=== PATIENT | female | born 1980 | race African-American/Black ===

== ENCOUNTER 2024-12-31 16:56 | Emergency (ER) | payer OTHER, SELFPAY ==
--- OUTSIDE RECORDS SUMMARY | 2024-12-04 12:30 | XMS_ITS | Encounter Summary ---
Author Organization [place] Address [address] [place] [address] Care Team Providers Care Hook And Eye Attacher Name Role Phone Jose Luis Manzano PA-C Primary Care Provider [phone] Annia Childers MD Unavailable [phone] Rose Wagoner PA-C Unavailable [phone] Reason for Referral * Consultation (Routine) - Pending Review Specialty Diagnoses / Procedures Referred By Briseida bernard Referred To Contact Allergy Diagnoses Seasonal allergies Food allergy Jose Luis Manzano PA-C [address] [place] [address] [address] [place] [address] Phone: tel: fax: Referral ID Status Reason Start Date Expiration Date V isits Requested Visits Authorized [id number] Pending Review 12/04/2024 12/04/2025 1 1 Question Answer Reason for Referral: Allergy - Seasonal Scheduling Instructions: [facility] will call you to coordinate your care as prescribed by the provider. If you don t hear from a inbound call center representative within 2 business days, please call [phone] Comments Please be aware that coverage of these services is subject to the terms and limitations of your health insurance plan. Call member services at your health plan with any benefit or coverage questions. [facility] will call you to coordinate your care as prescribed by the provider. If you don t hear from a inbound call center representative within 2 business days, please call [phone] Reason for Visit * Reason Comments Allergies Itchy eyes, sneezing , headache, symptoms started 2 weeks ago, this occurs every spring, she has tried loratidin Encounter Details Date Type Department Care Team (Late st Contact Info) Description 12/04/2024 12:30 PM CDT Office Visit [facility] [address] [phone] Jose Luis Manzano PA-C [address] [address] Fibromyalgia (Primary Dx); Seasonal allergies; Food allergy Social History Tobacco Use Types Packs/Day Years Used Date Smoking Tobacco: Never Passive Smoke Exposure: Never Smokeless Tobacco: Never Tobacco Cessation:Counseling Given: Not Answered Alcohol Use Standard Drinks/Week Comments No 0 (1 standard drink = 0.6 oz pur e alcohol) PHQ-2 Answer Date Recorded PHQ-2 Score 0 10/02/2024 Adolescent Education Answer Date Record ed Getting School Help Needed Not on file 05/04 Comments No Sex and Gender Information Value Date Recorded Sex Assigned at Not on file Legal Sex Female 10:27 AM CDT Gender Identity Not on file Sexual Orientation Not on file documented as of this encounter Last Filed Vital Signs Vital Sign Reading Time Taken Comments Blood Pressure 122/72 12/04/2024 12:44 PM CDT Pulse 84 12/04/2024 12:44 PM CDT Temperature 36.6 C (97.9 F) 12/04/2024 12:44 PM CDT Respiratory Rate - - Oxygen Saturation 99% 12/04/2024 12:44 PM CDT Inhaled Oxygen Concentration - - Weight - - Height - - Body Mass Index - - documented in this encounter Progress Notes * Jose Luis Manzano PA-C - 12/04/2024 12:30 PM CDT Assessment & Plan Seasonal allergies - patient has tried and failed ~3 oral antihistamines as well as nasal sprays, having increasing oral itching with certain foods, warrants referral to supervisor sewer maintenance - Present to ED with any signs of anaphylaxis - Adult Allergy/Asthma Shopper Marketing Manager Referral - To [facility] Location Food allergy - occurring with honey, fruits, and [place] chocolate, avoid these foods for now - Adult Allergy/Asthma Shopper Marketing Manager Referral - To [facility] Location Fibromyalgia - stable, gabapentin and physical activity are helping with her symptoms, will refill gabapentin unchanged for 1 year - gabapentin (NEURONTIN) 300 MG capsule Dispense: 360 capsule; Refill: 3 Follow-up 1 year OV Malissa Jean is a 44 year old, presenting for the following health issues: Allergies (Itchy eyes, sneezing, headache, symptoms started 2 weeks ago, this occurs every spring, she has tried loratidin) HPI Patient presents with c/o seasonal allergies for 2 weeks. She complains of nasal congestion, itchy eyes, sneezing every spring for ~15 years. She uses Claratin and Flonase daily. She has tired Zyrtecand Jing as well. Nothing helping. She also has experiences with foods that make her tongue itchand gets bumps on the sides, this especially happens with honey and some fruits. She was eating some [place] chocolate a few days ago and she noticed her throat felt tight. No shortness of breath or reason to go to ED. Wants referral to supervisor sewer maintenance. No sick symptoms, fevers, chills, cough, or SOB currently. Fibromyalgia: requests refill gabapentin. Using 3 capsules nightly. More physical activity has beenhelping her. Feels benefit from meds-helps her sleep and muscle aches. Review of Systems Constitutional, neuro, ENT, endocrine, pulmonary, cardiac, gastrointestinal, genitourinary, musculoskeletal, integument and psychiatric systems are negative, except as otherwise noted. Objective BP 122/72 Pulse 84 Temp 97.9 ??F (36.6 ??C) SpO2 99% There is no height or weight on file to calculate BMI. Physical Exam GENERAL: alert and no distress NECK: no adenopathy, no asymmetry, masses, or scars MOUTH: Bumps on sides of tongue RESP: lungs clear to auscultation - no rales, rhonchi or wheezes CV: regular rate and rhythm, normal S1 S2, no S3 or S4, no murmur, click or rub, no peripheral edema ABDOMEN: soft, nontender, no hepatosplenomegaly, no masses and bowel sounds normal MS: no gross musculoskeletal defects noted, no edema NEURO: Normal strength and tone, mentation intact and speech normal PSYCH: mentation appears normal, affect normal/bright No results found for any visits on 12/04/24. Signed Electronically by: Jose Luis Manzano PA-C documented in this encounter Nursing Notes * Elida Tompkins CMA - 12/04/2024 12:30 PM CDT Chief Complaint Patient presents with Allergies Itchy eyes, sneezing, headache, symptoms started 2 weeks ago, this occurs every spring, she has tried loratidin Pre-visit Screening: Immunizations: up to date Colonoscopy: NA Mammogram: is due and to be scheduled by patient for later completion Asthma Action Test/Plan: NA PHQ9: NA GAD7: NA Questioned patient about current smoking habits Pt. has never smoked. Ok to leave detailed message on voice mail for today's visit only Yes, phone # [phone] documented in this encounter Plan of Treatment Upcoming Encounters Date Type Department Care Team (Late st Contact Info) Description 02/04/2025 11:15 AM CDT Office Visit [facility] [address] [place] [phone] Kyra Julieth Dumont, CN [address] [facility] 700 [place] [address] 04/01/2025 9:30 AM CDT Office Visit [facility] [place] [address] [facility] [address] [place] [phone] Jose Luis Manzano PA-C [address] [place] [address] Nghia Wick MD [address] [facility] 200 [place] [address] Scheduled Referrals Name Type Priority Associated Diagnoses Orde r Schedule Adult Allergy/Asthma Shopper Marketing Manager Referral - To [facility] Referral Routine: Next available opening Seasonal allergies Food allergy Expected: 12/04/2024 (Approximate), Expires: 12/04/2025 documented as of this encounter Visit Diagnoses Diagnosis Fibromyalgia- Primary Mylagia and myositis, unspecified Seasonal allergies Allergic rhinitis, cause unspecified Food allergy Other adverse food reactions, not elsewhere classified documented in this encounter Care Teams Hook And Eye Attacher Relationship Specialty Start Date End Date Jose Luis Manzano PA-C [address] [address] PCP - General Family Medicine 05/25/22 Annia Childers MD [address] [place] [address] Assigned PCP 11/01/24 Rose Wagoner PA-C [address] [address] Physician Glass Beveler renewable energy division manager 11/17/24 documented as of this encounter
[2024-12-31 17:03] VITALS: BP 112/76; PULSE 76; RESP 16; TEMP 36.9; O2SAT 98; BMI 32.0
--- NOTE | 2024-12-31 17:15 | CRLHL7_ITS ---
For Patients: As a result of the Century Cures Act, medical imaging exams and procedure reports are released immediately into your electronic medical record. You may view this report before your referring provider. If you have questions, please contact your health care provider. INDICATION: IUD and positive at home test, lower abdominal pain. Beta hCG reportedly negative. COMPARISON: None. TECHNIQUE: Ultrasound pelvis transvaginal for better assessment or to better visualize the endometrium. Real-time sonographic images with color Doppler and spectral analysis of the ovaries were obtained. FINDINGS: Sonographic images demonstrate a normal size and smooth outer contour of the uterus. The uterus is retroflexed in position. The uterus measures 8.7 cm in length by 3.9 cm in AP dimension by 4.9 cm in transverse dimension. The myometrium has uniform echotexture. Nabothian cysts in the cervix. The endometrial lining measures 4 mm in composite thickness. IUD appears appropriately positioned. No intrauterine gestational sac identified. The right ovary measures 2.2 x 1.2 x 1.3 cm and demonstrates normal arterial and venous waveforms. The left ovary was not visualized. No suspicious adnexal mass. No free fluid in the pelvic cul-de-sac. IMPRESSION: 1. No intrauterine gestational sac or suspicious adnexal mass. Correlate with serial beta HCG levels and follow-up imaging as clinically indicated. 2. IUD appears appropriately positioned. 3. Normal sonographic appearance of the right ovary. Nonvisualization of the left ovary. Dictated by Felicita Garcia MD @ 12/31/2024 6:38:34 PM (Electronically Signed)
--- NOTE | 2024-12-31 17:17 | ED.PREGNANCY ---
HPI - General Chief complaint: Urogenital Problems, Female Stated complaint: IUD and positive test Time Seen by Provider: 12/31/24 17:00 History of Present Illness HPI Narrative: This 44-year-old female comes in stating that she had a positive urine test today. She did 1 last week which was negative. She states that she has an IUD in place and reports some occasional lower abdominal pain that comes and goes. She states that she is otherwise in good health. Related Data Home Medications ?Medication ?Instructions ?Recorded ?Confirmed dextroamphetamine-amphetamine ER 30 mg PO DAILY 12/31/24 12/31/24 30 mg 24hr capsule,extend release (Adderall XR) gabapentin 300 mg capsule 300 mg PO DAILY 12/31/24 12/31/24 Previous Rx's ?Medication ?Instructions ?Recorded ketorolac 10 mg tablet 10 mg PO TID 5 days #15 tabs 12/31/24 Allergies Allergy/AdvReac Type Severity Reaction Status Date / Time No Known Drug Allergies Allergy Verified 12/31/24 17:01 Review of Systems Status of ROS: Reports: 10 or more systems reviewed and unremarkable except as noted in History and below Narrative: Constitutional: No fevers, no weight gain or loss. Eyes: No discharge. No vision changes. HENT: No congestion, no sore throat, no ear pain. Cardiovascular: No chest pain, no palpitations. Respiratory: No shortness of breath, no wheezes, no cough. Gastrointestinal: No vomiting, no diarrhea. Occasions of lower abdominal pain. Genitourinary: No dysuria, no hematuria. Musculoskeletal: Normal range of motion. Skin: No rashes, no pruritis. Neurological: No dizziness, weakness, sensory change, speech change. Endo/Heme/Allergies: No bruising or bleeding. No polydipsia. Pysch: no suicidality, no anxiety, no insomnia. All other systems reviewed and are negative. Exam Narrative: Exam Narrative: Constitutional: Well-developed, well-nourished, no acute distress. HEENT: Normocephalic, atraumatic. Neck: Normal range of motion. Nontender. Supple. Heart: Regular. No murmurs. Normal rate. Intact distal pulses. Lungs: Clear to auscultation. No chest discomfort. No wheezes, rhonchi, or rales. Abdomen: Normal bowel sounds. Nontender. No rebound tenderness. Genitalia: Deferred. Back: No midline tenderness. Normal range of motion. Extremities: Normal range of motion. No injury. Skin: Intact. No rash. Warm. No erythema or pallor. Neurologic: No altered sensation. No weakness. Alert and oriented. Psychiatric: No suicidality. No anxiety or depression. No insomnia. Nursing notes and vitals signs are reviewed. Const: Vital Signs, click to edit/add: Vital Signs - 24 hr 12/31/24 17:03 12/31/24 18:59 Temperature 98.5 F Pulse Rate [Pulse Oximeter] 76 64 Respiratory Rate 16 16 [facility] 112/76 121/95 H Pulse Oximetry 98 98 Oxygen Delivery Me thod Room Air Room Air Course Vital Signs Vital signs: Initial Vital Signs Temperature 98.5 F 12/31/24 17:03 Temperature Source Temporal Artery Scan 12/31/24 17:03 Pulse Rate 76 12/31/24 17:03 Respiratory Rate 16 12/31/24 17:03 Blood Pressure 112/76 12/31/24 17:03 Blood Pressure Mean 88 12/31/24 17:03 Blood Pressure Position Sitting 12/31/24 17:03 Pulse Oximetry 98 12/31/24 17:03 Oxygen Delivery Method Room Air 12/31/24 17:03 Vital Signs Temperature 98.5 F 12/31/24 17:03 Pulse Rate 76 12/31/24 17:03 Respiratory Rate 16 12/31/24 17:03 Blood Pressure 112/76 12/31/24 17:03 Pulse Oximetry 98 12/31/24 17:03 Oxygen Delivery Method Room Air 12/31/24 17:03 Temperature 98.5 F 12/31/24 17:03 Pulse Rate 64 12/31/24 18:59 Respiratory Rate 16 12/31/24 18:59 Blood Pressure 121/95 H 12/31/24 18:59 Pulse Oximetry 98 12/31/24 18:59 Oxygen Delivery Method Room Air 12/31/24 18:59 MDM - OB/Uterine Contractions MDM Narrative Medical decision making narrative: This patient comes in with report of a positive home test despite having an IUD in place per she does report some occasions of lower abdominal pain. She arrives here with normal vital signs. Urine test here returns negative. Urinalysis also shows no sign of infection. A transvaginal ultrasound is obtained and shows properly placed IUD without any sign of fluid or other abnormality. The left ovary was not well visualized. I relayed these findings to the patient and encouraged her to follow-up with OBGYN clinic if symptoms are persisting or return if worsening. I did provide a prescription for Toradol. Lab Data Labs: Lab Results 12/31/24 12/31/24 Range/Units 17:25 17:35 Urine Color Yellow (Yellow) Urine Appearance Clear (Clear) Urine pH 6.5 (5.0-8.5) Ur Specific [place] 1.020 (1.000-1.030) Urine Protein Negative (Negative) Urine Glucose (UA) Negative (Negative) Urine Ketones Negative (Negative) Urine Blood Negative (Negative) Urine Nitrite Negative (Negative) Urine Bilirubin Negative (Negative) Urine Urobilinogen 0.2 (0.2-1.0) Ur Leukocyte Esterase Negative (Negative) Urine HCG, Qual Negative (Negative) Imaging Data US - abdomen: Radiologist's impression: 1. No intrauterine gestational sac or suspicious adnexal mass. Correlate with serial beta HCG levels and follow-up imaging as clinically indicated. 2. IUD appears appropriately positioned. 3. Normal sonographic appearance of the right ovary. Nonvisualization of the left ovary. Discharge Plan Discharge Clinical Impression: Abdominal pain Patient Disposition: Home, Self-Care Condition: Stable Additional Instructions: Take medication as needed and directed. Follow-up with OBGYN clinic for further diagnosis and management as needed. Prescriptions: New ketorolac 10 mg tablet 10 mg PO TID 5 Days Qty: 15 0RF No Action gabapentin 300 mg capsule 300 mg PO DAILY dextroamphetamine-amphetamine [Adderall XR] 30 mg capsule,extended release 24hr 30 mg PO DAILY Follow Up/Referrals: Provider,Not a Local [Primary Care Provider, Family Practice] Stand Alone Forms: [employer] Info Instructions
[2024-12-31 17:46] LABS: Ur HCG Qualitative* Negative (Negative)
--- OUTSIDE RECORDS SUMMARY | 2024-12-31 17:58 | XMS_ITS | Encounter Summary ---
Author Organization [place] Address [address] [facility] [address] Care Team Providers Care Tour Leader Name Role Phone Jose Luis Manzano PA-C Primary Care Provider [phone] Annia Childers MD Unavailable [phone] Rose Wagoner PA-C Unavailable [phone] Nghia Wick MD Unavailable Julieth Rae CNM Unavailable [phone] Encounter Details Date Type Department Care Team (Latest Contact Info) Description 12/31/2024 Travel Social History Tobacco Use Types Packs/Day Years Used Date Smoking Tobacco: Never Passive Smoke Exposure: Never Smokeless Tobacco: Never Alcohol Use Standard Drinks/Week Comments No 0 [...] on file documented as of this encounter Plan of Treatment Upcoming Encounters Date Type Department Care Team (Late st Contact Info) Description 02/04/2025 11:15 AM CDT Office Visit [facility] [address] [place] [phone] Julieth Rae CNM [address] [place], [place] [address] 04/01/2025 9:30 AM CDT Office Visit [facility] [place] [address] [facility] [address] [place] [address] Jose Luis Manzano PA-C [address] [place] [address] Nghia Wick MD [address] [facility] 200 [place] [address] documented as of this encounter Visit Diagnoses Not on filedocumented in this encounter Care Teams Tour Leader Relationship Specialty Start Date End Date Jose Luis Manzano PA-C [address] [place] [address] PCP - General Family Medicine 05/25/22 Annia Childers MD [address] [place] [address] Assigned PCP 11/01/24 Rose Wagoner PA-C [address] [facility] 100 [place] [address] Physician Dry End Operator live study manager 11/17/24 Nghia Wick MD [address] [facility] [address] [place] [address] Allergy & Immunology 12/11/24 Julieth Rae CNM [address] [place] [address] Statement Request Clerk live study manager 12/21/24 documented as of this encounter
--- OUTSIDE RECORDS SUMMARY | 2024-12-31 17:59 | XMS_ITS | Encounter Summary ---
Author Organization [place] Address [address] [place] [address] Care Team Providers Care Lap Cutter Truer Operator Name Role Phone Miguelina Christiansen APRN, CNP Primary Care Provid er Encounter Details Date Type Department Care Team (Late st Contact Info) Description 10/16/2013 Correspondence External to [facility] External, [place] [address] [employer] OF [employer]M Social History Tobacco Use Types Packs/Day Years Used Date Smoking Tobacco: Never Smokeless Tobacco: Never Alcohol Use Standard Drinks/Week Comments No 0 (1 standard drink = 0.6 oz pur e alcohol) Comments Yes Sex and Gender Information Value Date Recorded Sex Assigned at Not on file Legal Sex Female 2:58 AM CDT Gender Identity Not on file Sexual Orientation Not on file Occupation Industry Job Start Date Job End Date homemaker Not on file Not on file Not on file documented as of this encounter Progress Notes * External, Provider - 10/16/2013 12:00 AM CST documented in this encounter Plan of Treatment Not on file documented as of this encounter Visit Diagnoses Not on filedocumented in this encounter Care Teams Lap Cutter Truer Operator Relationship Specialty Start Date End Date Miguelina Christiansen APRN, CNP [address] [place] [address] PCP - General Nurse Practitioner 04/24/18 documented as of this encounter
--- OUTSIDE RECORDS SUMMARY | 2024-12-31 17:59 | XMS_ITS | Encounter Summary ---
Author Organization [place] Address [address] [place] [address] Care Team Providers Care Plywood Stock Grader Name Role Phone Kiran Nicholas SCHEDULING ASSISTANT Unavailable [phone] Jose Luis Manzano PA-C Primary Care Provider Dereje David MD Unavailable [phone] Nicholas Gordillo MD Unavailable [phone] Nupur Melo APRN [facility] Unavailable [phone] Annia Childers MD Unavailable Rose Wagoner PA-C Unavailable Nghia Wick MD Unavailable Julieth Rae [facility] Unavailable [phone] Encounter Details Date Type Department Care Team (Late st Contact Info) Description 10/10/2022 MyC Medical Advice [facility] [address] [address] Jose Luis Manzano PA-C [address] [address] Social History Tobacco Use Types Packs/Day Years Used Date Smoking Tobacco: Never Smokeless Tobacco: Never Alcohol Use Standard Drinks/Week Comments No 0 (1 standard drink = 0.6 oz pur e alcohol) PHQ-2 Answer Date Recorded PHQ-2 Score 0 08/31/2022 Comments No Sex and Gender Information Value Date Recorded Sex Assigned at Not on file Legal Sex Female 10:27 AM CDT Gender Identity Not on file Sexual Orientation Not on file COVID-19 Exposure Response Date Recorded In the last 10 days, have yo u been in contact with someone who was confirmed or suspected to have Coronavirus/COVID-19? No / Unsure 09/27/2022 2:35 PM HEAD OPERATOR documented as of this encounter Plan of Treatment Upcoming Encounters Date Type Department Care Team (Late st Contact Info) Description 02/04/2025 11:15 AM CDT Office Visit [facility] [address] [place] [address] [place] [address] Julieth Rae, [facility] [address] [place] [address] 04/01/2025 9:30 AM CDT Office Visit [facility] [place] [address] [facility] [address] [place] [phone] Jose Luis Manzano PA-C [address] [place] [address] Nghia Wick MD [address] [facility] 200 [place], [place] [address] documented as of this encounter Visit Diagnoses Not on filedocumented in this encounter Care Teams Plywood Stock Grader Relationship Specialty Start Date End Date Jose Luis Manzano PA-C [address] [place] [facility] [address] [place] [address] PCP - General Family Medicine 05/25/22 Kiran Nicholas NP [address] [facility] [place] [address] Assigned PCP 11/19/21 06/21/23 [place] [address] [place] [address] Assigned Rheumatology Provider 07/14/22 12/02/23 Nicholas Gordillo MD [address] [place] [address] Assigned PCP 06/22/23 08/02/24 Nupur Melo APRN MILL CRANE OPERATOR [address] [facility] [place] [address] Assigned PCP 08/03/24 10/31/24 Annia Childers MD [address] [place] [address] Assigned PCP 11/01/24 Rose Wagoner, PA-C [address] [place] [address] Physician Kettle Chipper director hris 11/17/24 Nghia Wick MD [address] [place] [address] Allergy & Immunology 12/11/24 Julieth Rae CNM [address] [place], [place] [address] Senior Quantity Surveyor director hris 12/21/24 documented as of this encounter
--- OUTSIDE RECORDS SUMMARY | 2024-12-31 17:59 | XMS_ITS | Encounter Summary ---
Author Organization [facility] Address [address] [place] [address] Care Team Providers Care Pre School Teacher Name Role Phone Miguelina Christiansen APRN, CNP Primary Care Provid er Encounter Details Date Type Department Care Team (Late st Contact Info) Description 10/04/2014 Consent for Procedure/Treatme nt [facility] PATIENT CONSENT FOR BLOOD TESTING Social History Tobacco Use Types Packs/Day Years Used Date Smoking Tobacco: Never Smokeless Tobacco: Never Alcohol Use Standard Drinks/Week Comments No 0 (1 standard drink = 0.6 oz pur e alcohol) Comments No Sex and Gender Information Value Date Recorded Sex Assigned at Not on file Legal Sex Female 2:58 AM CDT Gender Identity Not on file Sexual Orientation Not on file Occupation Industry Job Start Date Job End Date homemaker Not on file Not on file Not on file documented as of this encounter Plan of Treatment Not on file documented as of this encounter Visit Diagnoses Not on filedocumented in this encounter Care Teams Pre School Teacher Relationship Specialty Start Date End Date Miguelina Christiansen APRN, CNP [address] [place] [address] PCP - General Nurse Practitioner 04/24/18 documented as of this encounter
--- OUTSIDE RECORDS SUMMARY | 2024-12-31 17:59 | XMS_ITS | Encounter Summary ---
Author Organization [facility] Address [address] [place] [address] Care Team Providers Care Department Editor Name Role Phone Kiran Nicholas MEMBERSHIP ASSISTANT Unavailable [phone] Jose Luis Manzano PA-C Primary Care Provider [phone] Dereje David MD Unavailable Nicholas Gordillo MD Unavailable [phone] Nupur Melo APRN [facility] Unavailable [phone] Annia Childers MD Unavailable [phone] Rose WagonerC Unavailable Nghia Wick MD Unavailable Julieth Rae [facility] Unavailable [phone] Encounter Details Date Type Department Care Team (Late st Contact Info) Description 11/07/2022 MyC Medical Advice [facility] [address] [place] [address] Elida Tompkins, DARRIN Social History Tobacco Use Types Packs/Day Years [...] Description 02/04/2025 11:15 AM CDT Office Visit [facility] [address] [place] [address] Julieth Rae, CNM [address] [place] [address] 04/01/2025 9:30 AM CDT Office Visit [facility] [place] [address] [facility] [address] [place] [address] Jose Luis Manzano PA-C [address] [place] [address] Nghia Wick MD [address] [place] [address] documented as of this encounter Visit Diagnoses Not on filedocumented in this encounter Care Teams Department Editor Relationship Specialty Start Date End Date Jose Luis Manzano PA-C [address] [place] [address] PCP - General Family Medicine 05/25/22 Kiran Nicholas NP [address] [facility] [address] [place] [address] Assigned PCP 11/19/21 06/21/23 [place] [address] [place] [address] Assigned Rheumatology Provider 07/14/22 12/02/23 Nicholas Gordillo MD [address], [id number] [place] [address] Assigned PCP 06/22/23 08/02/24 Nupur Melo APRN SYSTEM OPERATION SUPERINTENDENT [address] [place] [address] Assigned PCP 08/03/24 10/31/24 Annia Childers MD [address] [place] [address] Assigned PCP 11/01/24 Rose Wagoner PA-C [address] [facility] [address] [place] [address] Physician Dirt Supervisor knit goods press hand 11/17/24 Nghia Wick MD [address] [facility] [address] [place] [address] Allergy & Immunology 12/11/24 Julieth Rae CNM [address] [facility] 700 [place] [address] Cup Setter Lockstitch knit goods press hand 12/21/24 documented as of this encounter
--- OUTSIDE RECORDS SUMMARY | 2024-12-31 17:59 | XMS_ITS | Encounter Summary ---
Author Organization [employer] Address [address] [place] [address] Care Team Providers Care Director Special Education Name Role Phone Miguelina Christiansen APRN, CNP Primary Care Provid er Encounter Details Date Type Department Care Team (Late st Contact Info) Description 12/29/2013 Scanned History External to Transferred Record, Provider [facility] Social History Tobacco Use Types Packs/Day Years Used Date Smoking Tobacco: Never Smokeless Tobacco: Never Alcohol Use Standard Drinks/Week Comments No 0 (1 standard drink = 0.6 oz pur e alcohol) Comments Unknown Sex and Gender Information Value Date Recorded [...] on filedocumented in this encounter Care Teams Director Special Education Relationship Specialty Start Date End Date Miguelina Christiansen APRN, CNP [address] [place] [address] PCP - General Nurse Practitioner 04/24/18 documented as of this encounter
--- OUTSIDE RECORDS SUMMARY | 2024-12-31 17:59 | XMS_ITS | Patient Health Record ---
Author Organization [facility] Address [address] [place] [address] Care Team Providers Care Life Trainer Name Role Phone Maged Issa Primary Care Provider Marilou vailable Allergies No Known Allergies Reason For Referral No Information Medications Medication SIG (Take, Route, Frequency, Duration) Notes Start Date End Date Status Cyclobenzaprine HCl Active Paragard Intrauterine Copper Active Problems Problem Type SNOMED Code ICD Code Onset Dates Problem Status W/U Status Risk Notes Problem Premenstrual syndrome (N94.3) Active confirmed Plan Of Treatment No Information Insurance Providers Payer Name Payer Address Payer Phone Subscriber Number Group Number Insured Name Patient Relationship to Insured Coverage Start Date Coverage End Date [facility] Commercial (Ins. Bill) [address] [address] [place], [place] [phone] [id number] Ted Saunders Self - patient is the insured Medical (General) History Surgical History Surgery Date(Month/Year) c- section 2009 Hospitalization History Reason Date(Month/Year) c- section 2009
--- OUTSIDE RECORDS SUMMARY | 2024-12-31 17:59 | XMS_ITS | Encounter Summary ---
Author Organization [facility] Address [address] [place] [address]. [place] [address] Care Team Providers Care Ophthalmic Medical Technician Name Role Phone Jose Luis Manzano PA-C Primary Care Provider Annia Childers MD Unavailable [phone] Rose Wagoner PA-C Unavailable [phone] Nghia Wick MD Unavailable Julieth Rae [facility] Unavailable [phone] Encounter Details Date Type Department Care Team (Late st Contact Info) Description 12/07/2024 MyC Medical Advice [facility] [address] [place] [address] [address] [place] [address] [facility] Social History Tobacco Use Types Packs/Day Years [...] Description 02/04/2025 11:15 AM CDT Office Visit [facility] [address] [place] [address] Julieth RaeDEBRA [address] [place] [address] 04/01/2025 9:30 AM CDT Office Visit [facility] [place] 6525 [facility] 200 [place] [address] Jose Luis Manzano PA-C [address] [facility] 100 [place] [address] Nghia Wick MD 6[address] [facility] 200 [place] [address] documented as of this encounter Visit Diagnoses Not on filedocumented in this encounter Care Teams Ophthalmic Medical Technician Relationship Specialty Start Date End Date Jose Luis Manzano PA-C [address] [facility] 100 [place] [address] PCP - General Family Medicine 05/25/22 Annia Childers MD [address] [facility] 100 [place] [address] Assigned PCP 11/01/24 Rose Wagoner PA-C 6525 [facility] 100 [place] [address] Physician Product Safety Technician windows migration technician 11/17/24 Nghia Wcik MD 6525 [facility] 200 [place], [place] [address] Allergy & Immunology 12/11/24 KyraJulieth juarezDEBRA [address] [place], [place] [address] Mobile Application Tester windows migration technician 12/21/24 documented as of this encounter
--- OUTSIDE RECORDS SUMMARY | 2024-12-31 17:59 | XMS_ITS | Encounter Summary ---
Author Organization [facility] Address [address] [place] [address] Care Team Providers Care Length Control Tester Name Role Phone Kiran Nicholas FRONT END DEVELOPER DESIGNER Unavailable [phone] Jose Luis Manzano PA-C Primary Care Provider Dereje David MD Unavailable Nicholas Gordillo MD Unavailable Nupur Melo APRN [facility] Unavailable [phone] Annia Childers MD Unavailable Rose Wagoner PA-C Unavailable [phone] Nghia Wick MD Unavailable Isaiah Raeissa Julia [facility] Unavailable Reason for Visit * Reason Onset Date Comments Medication Question 09/17/2022 Encounter Details Date Type Department Care Team (Late st Contact Info) Description 09/17/2022 MyC Medical Advice [facility] [address] [address] Jose Luis Manzano PA-C [address] [address] Medication Question Social History Tobacco Use Types Packs/Day Years [...] suspected to have Coronavirus/COVID-19? No / Unsure 08/31/2022 10:57 AM PREPARED FOODS PRODUCTION TEAM MEMBER documented as of this encounter Plan of Treatment Upcoming Encounters Date Type Department Care Team (Late st Contact Info) Description 02/04/2025 11:15 AM CDT Office Visit [facility] [address] [facility] [address] [place] [address] Julieth Rae, [facility] [address] [place] [address] 04/01/2025 9:30 AM CDT Office Visit [facility] [place] [address] [facility] [address] [place] [address] Jose Luis Manzano PA-C [address] [place] [address] Nghia Wick MD 6525 [facility] 200 [place], [place] [address] documented as of this encounter Visit Diagnoses Not on filedocumented in this encounter Care Teams Length Control Tester Relationship Specialty Start Date End Date Jose Luis Manzano PA-C [address] [place] [address] PCP - General Family Medicine 05/25/22 Kiran Nicholas NP [address] [facility] [place] [address] Assigned PCP 11/19/21 06/21/23 [place] [address] [place] [address] Assigned Rheumatology Provider 07/14/22 12/02/23 Nicholas Gordillo MD [address], [address] [place] [address] Assigned PCP 06/22/23 08/02/24 Nupur Melo APRN SUPERVISOR FILM PROCESSING [address] [place] [address] Assigned PCP 08/03/24 10/31/24 Annia Childers MD [address] [place] [address] Assigned PCP 11/01/24 Rose Wagoner, PA-C [address] [place] [address] [address] deputy 11/17/24 Nghia Wick MD [address] [place] [address] Allergy & Immunology 12/11/24 Julieth Rae CNM [address] [place], [place] [address] Breaker Table Worker court deputy 12/21/24 documented as of this encounter
--- OUTSIDE RECORDS SUMMARY | 2024-12-31 17:59 | XMS_ITS | Encounter Summary ---
Author Organization [facility] Address [address] [place] [address] Care Team Providers Care Furnace Erector Name Role Phone Jose Luis Manzano PA-C Primary Care Provider Dereje David MD Unavailable Nicholas Gordillo MD Unavailable Nupur Melo APRN [facility] Unavailable [phone] Annia Childers MD Unavailable Rose Wagoner PA-C Unavailable [phone] Nghia Wick MD Unavailable Julieth Rae [facility] Unavailable [phone] Encounter Details Date Type Department Care Team (Late st Contact Info) Description 07/07/2023 MyC Medical Advice [facility] [address] [address] Jose Luis Manzano PA-C [address] [id number] Social History Tobacco Use Types Packs/Day Years Used Date Smoking Tobacco: Never Passive Smoke Exposure: Never Smokeless Tobacco: Never Alcohol Use Standard Drinks/Week Comments No 0 (1 standard drink = 0.6 oz pur e alcohol) PHQ-2 Answer Date Recorded PHQ-2 Score 0 08/31/2022 Adolescent Education Answer Date Record ed Getting [...] Description 02/04/2025 11:15 AM CDT Office Visit [facility] [address] [place] [address] Julieth Rae, CNM [address] [place] [address] 04/01/2025 9:30 AM CDT Office Visit [facility] [place] [address] [facility] [address] [place] [address] Jose Luis Manzano PA-C [address] [place] [address] Nghia Wick MD [address] [place] [address] documented as of this encounter Visit Diagnoses Not on filedocumented in this encounter Care Teams Furnace Erector Relationship Specialty Start Date End Date Jose Luis Manzano PA-C [address] [place] [address] PCP - General Family Medicine 05/25/22 [place] [address] [place] [address] Assigned Rheumatology Provider 07/14/22 12/02/23 Nicholas Gordillo MD [address], [id number] [place] [address] Assigned PCP 06/22/23 08/02/24 Nupur Melo APRN INBOUND SALES REPRESENTATIVE [address] [place] [address] Assigned PCP 08/03/24 10/31/24 Annia Childers MD [address] [place] [address] Assigned PCP 11/01/24 Rose Wagoner PA-C [facility]25 [facility] [address] [place] [address] Physician Refractory Repairer roller skater 11/17/24 Nghia Wick MD [address] [facility] [address] [place] [address] Allergy & Immunology 12/11/24 Julieth Rae CNM [address] [place], [place] [address] [employer] Executive roller skater 12/21/24 documented as of this encounter
--- OUTSIDE RECORDS SUMMARY | 2024-12-31 17:59 | XMS_ITS | Encounter Summary ---
Author Organization [facility] Address [facility] [place] [address] Care Team Providers Care Pantograph Machine Set Up Operator Name Role Phone Jose Luis Manzano PA-C Primary Care Provider [phone] Annia Childers MD Unavailable [phone] Rose Wagoner PA-C Unavailable [phone] Encounter Details Date Type Department Care Team (Latest Contact Info) Description 12/04/2024 Travel Social History Tobacco Use Types Packs/Day [...] Description 02/04/2025 11:15 AM CDT Office Visit [facility] [place] [address] [place] [address] Julieth Rae, [facility] [address] [place] [address] 04/01/2025 9:30 AM CDT Office Visit [facility] [place] 6525 [facility] 200 [place] [phone] Jose Luis Manzano PA-C [address] [address] Nghia Wick MD 6581 [facility] 200 [place], [place] [address] documented as of this encounter Visit Diagnoses Not on filedocumented in this encounter Care Teams Pantograph Machine Set Up Operator Relationship Specialty Start Date End Date Jose Luis Manzano PA-C [address] [address] PCP - General Family Medicine 05/25/22 Annia Childers MD [address] [place] [address] Assigned PCP 11/01/24 Rose Wagoner PA-C 25 [facility] 100 [place] [address] Physician Buckle Attacher tomb maker helper 11/17/24 documented as of this encounter
--- OUTSIDE RECORDS SUMMARY | 2024-12-31 17:59 | XMS_ITS | Encounter Summary ---
Author Organization [facility] Address [address] [place] [address] Care Team Providers Care Merchandising Assistant Name Role Phone Kiran Nicholas [employer]CRA[employer] ACCESS[employer] MECHANIC Unavailable [phone] Jose Luis Manzano PA-C Primary Care Provider Dereje David MD Unavailable [phone] Nicholas Gordillo MD Unavailable Nupur Melo APRN [facility] Unavailable [phone] Annia Childers MD Unavailable Rose Wagoner PA-C Unavailable Nghia Wick MD Unavailable Julieth Rea [facility] Unavailable [phone] Encounter Details Date Type Department Care Team (Late st Contact Info) Description 06/15/2022 MyC Medical Advice [facility] [address] [address] Jose Luis Manzano PA-C [address] [address] Social History Tobacco Use Types Packs/Day Years Used Date Smoking Tobacco: Never Smokeless Tobacco: Never Alcohol Use Standard Drinks/Week Comments No 0 (1 standard drink = 0.6 oz pur e alcohol) PHQ-2 Answer Date Recorded PHQ-2 Score 0 11/10/2021 Comments No Sex and Gender Information Value Date Recorded Sex Assigned at Not on file Legal Sex Female 10:27 AM CDT Gender Identity Not on file Sexual Orientation Not on file COVID-19 Exposure Response Date Recorded In the last 10 days, have yo u been in contact with someone who was confirmed or suspected to have Coronavirus/COVID-19? No / Unsure 05/25/2022 11:17 AM CDT documented as of this encounter Plan of Treatment Upcoming Encounters Date Type Department Care Team (Late st Contact Info) Description 02/04/2025 11:15 AM CDT Office Visit [facility] [address] [place] [address] Julieth Rae, [facility] [address] [place] [address] 04/01/2025 9:30 AM CDT Office Visit [facility] [place] [address] [facility] [address] [place] [address] Jose Luis Manzano PA-C [address] [place] [address] Nghia Wick MD 6525 [facility] 200 [place], [place] [address] documented as of this encounter Visit Diagnoses Not on filedocumented in this encounter Care Teams Merchandising Assistant Relationship Specialty Start Date End Date Jose Luis Manzano PA-C 1000 [place] [facility] [address] [place] [address] PCP - General Family Medicine 05/25/22 Kiran Nicholas NP [address] [facility] [place] [address] Assigned PCP 11/19/21 06/21/23 [place] [address] [facility] [place] [address] Assigned Rheumatology Provider 07/14/22 12/02/23 Nicholas Gordillo MD [address], [address] [place] [address] Assigned PCP 06/22/23 08/02/24 Nupur Melo APRN SALES MANAGEMENT TRAINEE [address] [facility] [place] [address] Assigned PCP 08/03/24 10/31/24 Annia Childers MD [address] [place] [address] Assigned PCP 11/01/24 Rose Wagoner, PA-C [address] [facility] [address] [place] [address] Physician Warehouse Receiving Supervisor senior merchandiser 11/17/24 Nghia Wick MD [address] [place] [address] Allergy & Immunology 12/11/24 Julieth Rae CNM [address] [place] [address] Budget Director senior merchandiser 12/21/24 documented as of this encounter
--- OUTSIDE RECORDS SUMMARY | 2024-12-31 17:59 | XMS_ITS | Encounter Summary ---
Author Organization [employer] Address [address] [place] [address] Care Team Providers Care Rehab Aide Name Role Phone Miguelina Christiansen APRN, CNP Primary Care Provid er Encounter Details Date Type Department Care Team (Late st Contact Info) Description 08/07/2017 Scanned History External to Transferred Record, Provider [facility] Social History Tobacco Use Types Packs/Day Years [...] on filedocumented in this encounter Care Teams Rehab Aide Relationship Specialty Start Date End Date Miguelina Christiansen APRN, CNP [address] [place] [address] PCP - General Nurse Practitioner 04/24/18 documented as of this encounter
--- OUTSIDE RECORDS SUMMARY | 2024-12-31 17:59 | XMS_ITS | Encounter Summary ---
Author Organization [employer] Address [address] [place] [address] Care Team Providers Care Planer Feeder Name Role Phone Miguelina Christiansen APRN, CNP Primary Care Provid er Encounter Details Date Type Department Care Team (Late st Contact Info) Description 10/19/2013 Outside Hospital External to [facility], Provider OB VAGINAL DISCHARGE SUMMARY Social History Tobacco Use Types Packs/Day Years [...] as of this encounter Progress Notes * [facility], Provider - 10/19/2013 12:00 AM CDT documented in this encounter Plan of Treatment Not on file documented as of this encounter Visit Diagnoses Not on filedocumented in this encounter Care Teams Planer Feeder Relationship Specialty Start Date End Date Miguelina Christiansen APRN, CNP [address] [place] [address] PCP - General Nurse Practitioner 04/24/18 documented as of this encounter
--- OUTSIDE RECORDS SUMMARY | 2024-12-31 17:59 | XMS_ITS | Encounter Summary ---
Author Organization [facility] Address [address] [place] [address] Care Team Providers Care Airplane First Officer Name Role Phone Miguelina Christiansen APRN, CNP Primary Care Provid er Encounter Details Date Type Department Care Team (Late st Contact Info) Description 05/07/2014 Correspondence [facility] Radiology [address] [place] [id number] Radiology, Provider MRI SAFETY SHEET AND COMPATIBILITY FORM Social History Tobacco Use Types Packs/Day [...] on filedocumented in this encounter Care Teams Airplane First Officer Relationship Specialty Start Date End Date Miguelina Christiansen APRN, CNP [address] [place] [address] PCP - General Nurse Practitioner 04/24/18 documented as of this encounter
--- OUTSIDE RECORDS SUMMARY | 2024-12-31 17:59 | XMS_ITS | Encounter Summary ---
Author Organization [employer] Address [address] [place] [address] Care Team Providers Care Pulmonary Function Technologist Name Role Phone Miguelina Christiansen APRN, CNP Primary Care Provid er Encounter Details Date Type Department Care Team (Late st Contact Info) Description 04/23/2008 Scanned History External to Transferred Record, Provider [facility] Social History Tobacco Use Types Packs/Day Years Used Date Smoking Tobacco: Never Assessed Comments Unknown Sex and Gender Information Value Date Recorded Sex Assigned at Not on file Legal Sex Female 2:58 AM CDT Gender Identity Not on file Sexual Orientation Not on file documented as of this encounter Plan of Treatment Not on file documented as of this encounter Visit Diagnoses Not on filedocumented in this encounter Care Teams Pulmonary Function Technologist Relationship Specialty Start Date End Date Miguelina Christiansen APRN, CNP [address] [place] [address] PCP - General Nurse Practitioner 04/24/18 documented as of this encounter
--- OUTSIDE RECORDS SUMMARY | 2024-12-31 17:59 | XMS_ITS | Encounter Summary ---
Author Organization [facility] Address [address] [place] [address] Care Team Providers Care Lime Kiln Operator Name Role Phone Jose Luis Manzano PA-C Primary Care Provider Nupur Melo APRN [facility] Unavailable [phone] Annia Childers MD Unavailable Rose Wagoner PA-C Unavailable Nghia Wick MD Unavailable Kyra Julieth Dumont [facility] Unavailable [phone] Reason for Visit * Reason Onset Date Comments Referral 10/19/2024 Hepatology Refer [facility] Encounter Details Date Type Department Care Team (Late st Contact Info) Description 10/19/2024 MyC Medical Advice [facility] [address] [place] [address] Annia Childers MD [address] [place] [address] 100 [place] [address] Referral (Hepatology Referral [facility] Social History Tobacco Use Types Packs/Day Years [...] Description 02/04/2025 11:15 AM CDT [facility] [address] [place] [address] Julieth Rae, CNM [address] [place] [address] 04/01/2025 9:30 AM CDT [facility] Visit [facility] [place] [address] [facility] [address] [place] [address] Jose Luis Manzano PA-C [address] [place] [address] Nghia Wick MD 6525 [facility] 200 [place] [address] documented as of this encounter Visit Diagnoses Not on filedocumented in this encounter Care Teams Lime Kiln Operator Relationship Specialty Start Date End Date Jose Luis Manzano PA-C [address] [place] [address] PCP - General Family Medicine 05/25/22 Nupur Melo APRN HADOOP INFRASTRUCTURE ARCHITECT [address] [place] [address] Assigned PCP 08/03/24 10/31/24 Annia Childers MD [address] [place] [address] Assigned PCP 11/01/24 Rose Wagoner PA-C [address] [facility] [address] [place] [address] Physician Cognos Architect employment representative 11/17/24 Nghia Wick MD [address] [facility] [address] [place] [address] Allergy & Immunology 12/11/24 Julieth Rae CNM [address] [place], [place] [address] Faculty Research Physician employment representative 12/21/24 documented as of this encounter
--- OUTSIDE RECORDS SUMMARY | 2024-12-31 17:59 | XMS_ITS | Encounter Summary ---
Author Organization [place] Address [address] [place] [address] Care Team Providers Care Hoop Flaring Machine Operator Helper Name Role Phone Kiran Nicholas POLISHER BALANCE SCREWHEAD Unavailable [phone] Jose Luis Manzano PA-C Primary Care Provider Dereje David MD Unavailable [phone] Nicholas Gordillo MD Unavailable Nupur Melo APRN [facility] Unavailable [phone] Annia Childers MD Unavailable [phone] Rose Wagoner PA-C Unavailable Nghia Wick MD Unavailable Julieth Rae [facility] Unavailable Encounter Details Date Type Department Care Team (Late st Contact Info) Description 11/11/2022 MyC Medical Advice [facility] [address] [address] Jose Luis Manzano PA-C [address] [address] Social History Tobacco Use Types [...] was confirmed or suspected to have Coronavirus/COVID-19? Unable to assess 11/13/2022 11:02 AM CDT documented as of this encounter Plan of Treatment Upcoming Encounters Date Type Department Care Team (Late st Contact Info) Description 02/04/2025 11:15 AM CDT Office Visit [facility] [address] [place] [address] Julieth Rae, [facility] [address] [place] [address] 04/01/2025 9:30 AM CDT Office Visit [facility] [place] [address] [facility] [address] [place] [phone] Jose Luis Manzano PA-C [address] 100 [place] [address] Nghia Wick MD [address] [facility] 200 [place], [place] [address] documented as of this encounter Visit Diagnoses Not on filedocumented in this encounter Care Teams Hoop Flaring Machine Operator Helper Relationship Specialty Start Date End Date Jose Luis Manzano PA-C 1000 [address] [facility] [address] [place] [address] PCP - General Family Medicine 05/25/22 Kiran Nicholas NP [address] [facility] [place] [address] Assigned PCP 11/19/21 06/21/23 [place] [address] [place] [address] Assigned Rheumatology Provider 07/14/22 12/02/23 Nicholas Gordillo MD [id number] [place] [address] Assigned PCP 06/22/23 08/02/24 Nupur Melo APRN CARDIOLOGY CLINICAL CONSULTANT [address] [place] [address] Assigned PCP 08/03/24 10/31/24 Annia Childers MD [address] [place] [address] Assigned PCP 11/01/24 Rose Wagoner, PA-C [address] [place] [address] Physician Stunner Animal lockstitch pocket setter 11/17/24 Nghia Wick MD [address] [place] [address] Allergy & Immunology 12/11/24 Julieth Rae CNM [address] [place], [place] [address] [employer] Director lockstitch pocket setter 12/21/24 documented as of this encounter
--- OUTSIDE RECORDS SUMMARY | 2024-12-31 17:59 | XMS_ITS | Encounter Summary ---
Author Organization [employer] Address [address] [place] [address] Care Team Providers Care Wire Lather Name Role Phone Miguelina Christiansen APRN, CNP Primary Care Provid er Encounter Details Date Type Department Care Team (Late st Contact Info) Description 09/10/2017 Correspondence None No Primary/Referring, Phy HME EQUIPMENT BRASS CUTTER TICKET Social History Tobacco Use Types Packs/Day Years [...] on filedocumented in this encounter Care Teams Wire Lather Relationship Specialty Start Date End Date Miguelina Christiansen APRN, CNP [address] [place] [address] PCP - General Nurse Practitioner 04/24/18 documented as of this encounter
--- OUTSIDE RECORDS SUMMARY | 2024-12-31 17:59 | XMS_ITS | Encounter Summary ---
Author Organization [place] Address [address] [place] [address] Care Team Providers Care Food Equipment Service Technician Name Role Phone Jose Luis Manzano PA-C Primary Care Provider Annia Childers MD Unavailable [phone] Rose Wagoner PA-C Unavailable Reason for Visit * Reason Onset Date Comments Biometric Form 12/04/2024 Encounter Details Date Type Department Care Team (Late st Contact Info) Description 12/04/2024 Telephone [facility] [address] [place] [address] 100 [place] [address] Annia Childers MD [address] [place] [address] 100 [place] [address] Biometric Form Social History Tobacco Use Types Packs/Day Years [...] on file documented as of this encounter Miscellaneous Notes * Telephone Encounter - Elida Tompkins CMA - 12/07/2024 12:11 PM CDT Faxed. Scanned back to pt. * Telephone Encounter - Annia Childers MD - 12/07/2024 7:52 AM CDT Signed. Hgba1c on form, not done at the apt, she didn't have the form with her at the apt so we were not aware. * Telephone Encounter - Elida Tompkins CMA - 12/04/2024 1:31 PM CDT Biometric form in your in-basket to sign. The form requires and A1C if you want to put one in future patient can decide. Elida Anders CMA documented in this encounter Plan of Treatment Upcoming Encounters Date Type Department Care Team (Late st Contact Info) Description 02/04/2025 11:15 AM CDT Office Visit [facility]'s [facility] [address] [facility] [address] [place] [address] Julieth Rae, CN [address] [place] [address] 04/01/2025 9:30 AM CDT Office Visit [facility] [place] [address] [facility] [address] [place] [phone] Jose Luis Manzano PA-C [address] [place] [address] Nghia Wick MD [address] [facility] 200 [place] [address] documented as of this encounter Visit Diagnoses Not on filedocumented in this encounter Care Teams Food Equipment Service Technician Relationship Specialty Start Date End Date Jose Luis Manzano PA-C [address] [place] [address] PCP - General Family Medicine 05/25/22 Annia Childers MD [address] [place] [address] Assigned PCP 11/01/24 Rose Wagoner PA-C [address] [address] Physician Skidder [place] granulator machine operator 11/17/24 documented as of this encounter
--- OUTSIDE RECORDS SUMMARY | 2024-12-31 17:59 | XMS_ITS | Encounter Summary ---
Author Organization [employer] Address [address] [place] [address] Care Team Providers Care Log Snaker Name Role Phone Miguelina Christiansen APRN, CNP Primary Care Provid er Encounter Details Date Type Department Care Team (Late st Contact Info) Description 10/28/2013 Scanned History External to Transferred Record, Provider MORNING STAR Social History Tobacco Use Types Packs/Day Years [...] as of this encounter Progress Notes * Transferred Record, Provider - 10/28/2013 12:00 AM CDT documented in this encounter Plan of Treatment Not on file documented as of this encounter Visit Diagnoses Not on filedocumented in this encounter Care Teams Log Snaker Relationship Specialty Start Date End Date Miguelina Christiansen APRN, CNP [address] [place] [address] PCP - General Nurse Practitioner 04/24/18 documented as of this encounter
--- OUTSIDE RECORDS SUMMARY | 2024-12-31 17:59 | XMS_ITS | Encounter Summary ---
Author Organization [place] Address [address] [place] [address] Care Team Providers Care Mainspring Winder And Oiler Name Role Phone Jose Luis Manzano PA-C Primary Care Provider Nicholas Gordillo MD Unavailable Nupur Melo APRN [facility] Unavailable [phone] Annia Childers MD Unavailable [phone] Rose Wagoner PA-C Unavailable [phone] Nghia Wick MD Unavailable Julieth Rae [facility] Unavailable [phone] Encounter Details Date Type Department Care Team (Late st Contact Info) Description 03/19/2024 MyC Medical Advice [facility] [address] [place] [phone] Elida Tompkins CMA Social History Tobacco Use Types Packs/Day Years Used Date Smoking Tobacco: Never Passive Smoke Exposure: Never Smokeless Tobacco: Never Alcohol Use Standard Drinks/Week Comments No 0 (1 standard drink = 0.6 oz pur e alcohol) PHQ-2 Answer Date Recorded PHQ-2 Score 0 10/03/2023 Adolescent Education Answer Date Record ed Getting [...] 02/04/2025 11:15 AM CDT Office Visit [facility] [address] [place] [address] Julieth Rae, CNM [address] [place] [address] 04/01/2025 9:30 AM CDT Office [facility] [place] [address] [facility] [address] [place] [address] Jose Luis Manzano PA-C [address] [place] [address] Nghia Wick MD [address] [facility] 200 [place], [place] [address] documented as of this encounter Visit Diagnoses Not on filedocumented in this encounter Care Teams Mainspring Winder And Oiler Relationship Specialty Start Date End Date Jose Luis Manzano PA-C [address] [place] [address] PCP - General Family Medicine 05/25/22 Nicholas Gordillo MD [address] [place] [address] Assigned PCP 06/22/23 08/02/24 Nupur Melo APRN [employer] [address] [place] [address] Assigned PCP 08/03/24 10/31/24 Annia Childers MD [address] [place] [address] Assigned PCP 11/01/24 Rose Wagoner PA-C [address] [facility] [address] [place] [address] Physician Slipcover Cutter arborist 11/17/24 Nghia Wick MD [address] [facility] [address] [place] [address] Allergy & Immunology 12/11/24 Julieth Rae CNM [address] [place], [place] [address] Fire Control Mechanic arborist 12/21/24 documented as of this encounter
--- OUTSIDE RECORDS SUMMARY | 2024-12-31 17:59 | XMS_ITS | Clinical Summary ---
Author Organization [employer] Address [address] [place] [address] Care Team Providers Care Manager Consumer Name Role Phone Pcp, No Primary Care Provider Unavailabl e Allergies No known active allergies Medications Breast Pump - Purchase For home use. Gestation age at delivery: 30 weeks. Reason for need: baby in NICU. Length of need: 1 year 1 Device 0 4 Active Active Problems Problem Noted Date Diagnosed Date High-risk supervision 10/17/2013 Previous section 10/17/2013 Hepatitis B carrier 10/17/2013 Gestational diabetes 10/17/2013 Family History Medical History Relation Name Comments Cancer-breast Other NEG HX Relation Name Status Comments Other Social History Tobacco Use Types Packs/Day Years Used Date Smoking Tobacco: Never Alcohol Use Standard Drinks/Week Comments Not Asked 0 (1 standard drink = 0.6 oz pur e alcohol) Comments No Sex and Gender Information Value Date Recorded Sex Assigned at Not on file Legal Sex Female 8:37 PM BISQUE PLACER Gender Identity Not on file Sexual Orientation Not on file Obstetrics History Para Term AB IAB SAB Ectopic Multiple Livin g Live Births 5 3 1 1 2 Date Outcome GA Total Labor Labor/2nd/3rd Weight Sex Type Anes PTL Maxine A1 A5 Name Clin Comments:System Genera jorge. Please review and update details. Para Induced 04/2010 Term 40w 4d 4.22 kg (9 lb 5 oz) M C-Secti on 11/2011 36w 3d 2.95 kg (6 lb 8 oz) Last Filed Vital Signs Vital Sign Reading Time Taken Comments Blood Pressure 104/52 10/19/2013 8:00 AM CDT Pulse 70 10/19/2013 8:00 AM CDT Temperature 36.7 C (98 F) 10/19/2013 8:00 AM CDT Respiratory Rate 16 10/19/2013 8:00 AM CDT Oxygen Saturation - - Inhaled Oxygen Concentration - - Weight 68.9 kg (152 lb) 10/17/2013 10:00 PM BISQUE PLACER Height 149.9 cm (4' 11) 10/17/2013 10:00 PM BISQUE PLACER Body Mass Index 30.7 10/17/2013 10:00 PM BISQUE PLACER Plan of Treatment Health Maintenance Due Date Last Done Comments Tdap 1992 Depression screening for age 12+ 1993 HIV for age 15-65 1996 BMI (ht and wt on same day) for age 18+ 1999 Hepatitis C screening for ag e 18-79 1999 Tetanus booster 2001 Pap test for age 21-65 2002 COVID-19 vaccine series (2023- season) 2024 Influenza Vaccine (Season Ended) 2025 Pneumococcal series for age 6-49 Aged Out No longer eligible based on patient's age to complete this topic Insurance [facility] [place] [id number] [place] [id number] Advance Directives * Full Code (Latest Code Status on File) Date Activated Date Inactivated Comments 10/17/2013 10:49 PM 10/19/2013 4:29 PM * Full Code Date Activated Date Inactivated Comments 10/17/2013 9:06 PM 10/17/2013 10:49 PM * Full Code Date Activated Date Inactivated Comments 10/17/2013 8:48 PM 10/17/2013 9:06 PM Care Teams Manager Consumer Relationship Specialty Start Date End Date Pcp, No . PCP - General 10/19/13
--- OUTSIDE RECORDS SUMMARY | 2024-12-31 17:59 | XMS_ITS | Encounter Summary ---
Author Organization [employer] Address [address] [place] [address] Care Team Providers Care Alliance Consultant Name Role Phone Miguelina Christiansen APRN, CNP Primary Care Provid er Encounter Details Date Type Department Care Team (Late st Contact Info) Description 08/23/2017 Correspondence None No Primary/Referring, Phy HME DOUBLE ELECTRIC BREAST PUMP Social History Tobacco Use Types Packs/Day Years [...] on filedocumented in this encounter Care Teams Alliance Consultant Relationship Specialty Start Date End Date Miguelina Christiansen APRN, CNP [address] [place] [address] PCP - General Nurse Practitioner 04/24/18 documented as of this encounter
--- OUTSIDE RECORDS SUMMARY | 2024-12-31 17:59 | XMS_ITS | Encounter Summary ---
Author Organization [place] Address [address] [place] [address] Care Team Providers Care Hot Stick Man Name Role Phone Kiran Nicholas ADDICTIONS COUNSELOR Unavailable [phone] Jose Luis Manzano PA-C Primary Care Provider Dereje [place] MD Unavailable [phone] Nicholas Gordillo MD Unavailable [phone] Nupur Melo APRN [facility] Unavailable [phone] Annia Childers MD Unavailable Rose Wagoner PA-C Unavailable [phone] Nghia Wick MD Unavailable Isaiah Raeissa Julia [facility] Unavailable [phone] Encounter Details Date Type Department Care Team (Late st Contact Info) Description 02/25/2023 MyC Medical Advice [facility] [address] [address] Jose Luis Manzano PA-C [address] [address] Social History Tobacco Use Types [...] suspected to have Coronavirus/COVID-19? No / Unsure 02/22/2023 1:29 PM CDT documented as of this encounter Plan of Treatment Upcoming Encounters Date Type Department Care Team (Late st Contact Info) Description 02/04/2025 11:15 AM CDT Office Visit [facility] [address] [place] [address] Julieth Rae, [facility] [address] [place] [address] 700 [place] [address] 04/01/2025 9:30 AM CDT Office Visit [facility] [place] 65[address] [facility] 200 [place] [address] Jose Luis Manzano PA-C [address] [address] Nghia Wick MD 6525 [facility] 200 [place] [address] documented as of this encounter Visit Diagnoses Not on filedocumented in this encounter Care Teams Hot Stick Man Relationship Specialty Start Date End Date Jose Luis Manzano PA-C [address] 100 [place] [address] PCP - General Family Medicine 05/25/22 Kiran Nicholas NP [address] [facility] [address] [place] [address] Assigned PCP 11/19/21 06/21/23 [place] [address] [facility] [place] [address] Assigned Rheumatology Provider 07/14/22 12/02/23 Nicholas Gordillo MD [address] [place] [address] Assigned PCP 06/22/23 08/02/24 Nupur Melo APRN COMPLIANCE COUNSEL [address] [place] [address] Assigned PCP 08/03/24 10/31/24 Annia Childers MD [address] [place] [address] Assigned PCP 11/01/24 Rose Wagoner PA-C [address] [facility] [address] [place] [address] Physician Lithographic Plate Maker building stonecutter 11/17/24 Nghia Wick MD [address] [place] [address] Allergy & Immunology 12/11/24 Julieth Rae CNM [address] [place], [place] [address] Coagulating Bath Mixer building stonecutter 12/21/24 documented as of this encounter
--- OUTSIDE RECORDS SUMMARY | 2024-12-31 17:59 | XMS_ITS | Encounter Summary ---
Author Organization [employer] Address [address] [place] [address] Care Team Providers Care Health Therapist Name Role Phone Miguelina Christiansen APRN, CNP Primary Care Provid er Encounter Details Date Type Department Care Team (Late st Contact Info) Description 10/04/2014 Consent for Procedure/Treatme nt [facility] INFORMED CONSENT RECORD Social History Tobacco Use Types Packs/Day Years [...] on filedocumented in this encounter Care Teams Health Therapist Relationship Specialty Start Date End Date Miguelina Christiansen, HALIE SCHAFFER [address] [place] [address] PCP - General Nurse Practitioner 04/24/18 documented as of this encounter
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
--- OUTSIDE RECORDS SUMMARY | 2024-12-31 17:59 | XMS_ITS | Clinical Summary ---
Author Organization [facility] Address [address] [place] [address] Care Team Providers Care Business Support Associate Name Role Phone Miguelina Christiansen APRN, SOFTWARE DESIGN MANAGER Primary Care Provid er Source Comments You are receiving this document as you are listed as the primary care provider,follow-up provider, or the patient has been referred to you for consultation.This is in compliance with the Medicare and[facility] EHR Incentive Program,which states Providers who transition their patient to another setting of careor provider of care or refers their patient to another provider of care shouldprovide summary care record for each transition of care or referral. [facility] Allergies No known active allergies Medications beclomethasone (QVAR) 80 MCG/ACT inhaler 2 puffs bid x 2 wks, then 1 puff bid. Rinse mouth and throat after use. 8.7 g 1 11/21/19 20 Active Loratadine (CLARITIN OR) Active intra-uterine copper contraceptive ([id number]) deviceIndications :Encounter for insertion of intrauterine contraceptive device 1 Device by Intrauterine route continuous. 02/17/20 20 030 Active doxylamine succinate (UNISOM) 25 MG tablet Take 25 mg by mouth. Active Multiple Vitamins-Minerals (MULTIVITAMIN ADULT OR) Active Active Problems Problem Noted Date Diagnosed Date Seasonal allergies 08/23/2017 Acne 03/04/2014 Overview (03/04/2014): Non-pustular lesions involving forehead and cheeks, bilaterally.Tretinoin (RETIN-A) 0.025 % cream rx. Mild intermittent asthma 12/19/2012 Allergic rhinitis 12/19/2012 Short stature disorder 09/11/2011 Overview (04/03/2017): Short stature Hepatitis B carrier 05/24/2011 Overview (08/07/2017): GI consult Sprain and strain of unspecified site of elbow a nd forearm 03/19/2007 Overview (03/10/2009): Comment: strain of right dorsal forearm Chalazion 02/06/2005 Resolved Problems Problem Noted Date Diagnosed Date Resolved Date (normal spontaneous vaginal delivery) 02/02/2020 02/18/2020 Short cervix affecting 08/17/2019 02/02/2020 Obesity in 06/19/2019 020 History of delivery affecting 06/19/2019 02/02/2020 Hx successful (vaginal after ), currently 06/19/2019 02/02/2020 Asthma 08/23/2017 09/13/2020 Supervision of high risk pre gnancy in third trimester 08/07/2017 02/02/2020 Overview (08/07/2017): [place] [employer] [place] [facility] @ 37 1/2 weeks Elderly multigravida in third trimester 08/07/2017 02/02/2020 Cervical cancer screening 01/28/2017 Overview (04/03/2017): 2009 NILM 2012 NILM 2016 NILM , neg HPV 36 y.o. Plan: Cotest 01/2022 ; Pap test history GDM (gestational diabetes mellitus) 10/21/2013 08/07/2017 History of delivery , currently 07/30/2013 11/25/2013 High-risk supervision 07/02/2013 11/25/2013 Need for Tdap vaccination 07/02/2013 Short stature (child) 09/11/20112019 Overview (04/03/2017): Short stature Postsurgical status 05/24/2011 02/18/20 20 Previous delivery, antepartum condition or complication 05/24/2011 02/02/2020 Overview (08/07/2017): Failure to desend, 9lb 3 oz., failed vacuum [email or web address]/Public[facility]/[email or web address] 65.9% of success. VBACs were of , and smaller than this baby is. Allergic rhinitis 02/06/2011 02/18/2020 Overview (04/03/2017): Rhinitis Allergic NOS Intestinal infection due to Clostridium difficile 07/19/2010 08/07/2017 Overview (07/19/2010): POSITIVE C.DIFF 05/21/2010 STOOL. Hepatitis B 05/26/2010 08/07/2017 Immunizations Immunization Administration Dates Next Due [id number] 09/17/2009 HepB Adult (Engerix-B, 20+ y rs, 3 dose series) 12/11/2005,10/08/2005,01/12/2005 MMR 01/12/2005,12/06/2004 TB Skin Test (PPD) 10/08/2005 Td 10/08/2005,01/12/2005 Td (7+ yrs) 12/06/2004 Td, Preservative Free 12/06/2004 Tdap 08/07/2017,11/25/2013,01/17/2010 Varicella 01/12/2005,12/06/2004 Family History Medical History Relation Name Comments Cancer, Breast Negative Family History Social History Tobacco Use Types Packs/Day Years Used Date Smoking Tobacco: Never Smokeless Tobacco: Never Alcohol Use Standard Drinks/Week Comments No 0 (1 standard drink = 0.6 oz pur e alcohol) PHQ-2 Answer Date Recorded PHQ-2 Score 0 10/13/2019 Comments No Sex and Gender Information Value Date Recorded Sex Assigned at Not on file Legal Sex Female 2:58 AM CDT Gender Identity Not on file Sexual Orientation Not on file Occupation Industry Job Start Date Job End Date homemaker Not on file Not on file Not on file Last Filed Vital Signs Vital Sign Reading Time Taken Comments Blood Pressure 104/64 06/22/2020 1:13 PM LEATHER COVERER Pulse 57 06/22/2020 1:13 PM LEATHER COVERER Temperature 36.6 C (97.9 F) 06/22/2020 1:13 PM LEATHER COVERER Respiratory Rate 16 06/22/2020 1:13 PM LEATHER COVERER Oxygen Saturation 100% 09/24/2019 1:53 PM LEATHER COVERER Inhaled Oxygen Concentration - - Weight 68.9 kg (152 lb) 06/22/2020 1:13 PM LEATHER COVERER Height 149.9 cm (4' 11) 02/24/2018 3:07 PM CDT Body Mass Index 30.7 02/24/2018 3:07 PM CDT Plan of Treatment Health Maintenance Due Date Last Done Comments Tuberculosis Screening 1981 Mammogram 1981 Adult Preventive Visit 1999 Pneumococcal Vaccine (1 of 2 - PCV) 2000 Asthma ACT (score of 20 or higher) 10/12/2020 10/13/2019, 02/24/2018, 07/27/2016 HEP B CARRIER: DNA QUANT 12/20/2020 06/22/2020, 03/2019 HEP B CARRIER: ULTRASOUND 01/12/20212019, 06/23/2014, 12/23/2013 Cervical Cancer Screening 01/23/20222016, 07/02/2013, 07/02/2013, Additional history exists HEP B CARRIER: ALT 05/12/2022 11/10/2021, 1 08/22/2019, 06/19/2019, Additional history exists COVID-19 Vaccine (2 - season) 2024 12/14/2020 Influenza Vaccine (Season Ended) 2025 DTaP/Tdap/Td Vaccine (4 - Tdap) 08/07/2027 08/07/2017, 11/25/2013, 01/17/2010, Additional history exists Zoster/Shingles Vaccine (1 of 2) 2031 HepB Vaccine Completed 12/11/2005, 09/13, 01/12/2005 Hep C Screening (Preventive Services) Completed 03/06/2018, 10/04/2014, 10/04/2014, Additional history exists HIV Screening (Preventive Services) Completed 06/19/2019, 02/01/2017, 10/04/2014, Additional history exists HPV Vaccine Aged Out No longer eligi ble based on patient's age to complete this topic HepA Vaccine Aged Out No longer eligi ble based on patient's age to complete this topic Hib Vaccine Aged Out No longer eligi ble based on patient's age to complete this topic IPV (Polio) Vaccine Aged Out No longe r eligible based on patient's age to complete this topic MCV4 Vaccine Aged Out No longer eligi ble based on patient's age to complete this topic Meningococcal B Vaccine Aged Out No l onger eligible based on patient's age to complete this topic Procedures Procedure Name Priority Date/Time Associated Diagnosis Comments US ABD COMPLETE Routine 07/14/2020 12:21 PM LEATHER COVERER Chronic viral hepatitis B without delta agent and without coma (HRC) HEPATITIS B DNA QUANTITATIVE BY TMA Routine 06/22/2020 1:48 PM LEATHER COVERER Chronic viral hepatitis B without delta agent and without coma (HRC) LIVER PANEL(HEPATIC FUNCTION PANEL) Routine 06/22/2020 1:48 PM LEATHER COVERER Chronic viral hepatitis B without delta agent and without coma (HRC) HIV 1/2 AG/AB 4TH GEN Routine 06/19/2019 2:20 PM LEATHER COVERER Supervision of other normal HEPATITIS C ANTIBODY, WITH REFLEX Routine 03/06/2018 2:45 PM CDT Fatigue, unspecified type PAP TEST, ROUTINE Routine 01/23/2017 3:0 9 PM CDT Previous section from Last 3 Months or Most Recently Relevant to Health Maintenance Results * US Abd Complete (07/14/2020 12:21 PM LEATHER COVERER) Anatomical Region Laterality Modality Abdomen Ultrasound 07/14/2020 12:2 1 PM LEATHER COVERER Narrative 07/14/2020 12:55 PM LEATHER COVERER EXAM: US ABD COMPLETE LOCATION: [facility] DATE/TIME: 07/14/2020 12:21 PM INDICATION: Hcc screening, hbv COMPARISON: 06/23/2014 TECHNIQUE: Complete abdominal ultrasound. FINDINGS: GALLBLADDER: Normal. No gallstones, wall thickening, or pericholecystic fluid. Negative sonographic Soria's sign. BILE DUCTS: No biliary dilatation. The common duct measures 3 mm. LIVER: Coarsened echotexture, suggesting underlying fibrosis. Smooth contour. There are several simple and minimally complicated hepatic cysts. The two largest demonstrate mild complexity with thin avascular septations and measure 2.2 x 2.3 x 2.2 cm in the left lobe and 2.9 x 2.9 x 2.3 cm in the right lobe. The cysts have all mildly increased in size and compared to prior exam. The portal vein is patent with flow in the normal direction. RIGHT KIDNEY: Normal size. There is a homogenously echogenic lesion in the mid right kidney measuring 7 x 7 x 7 mm. No hydronephrosis. LEFT KIDNEY: Normal size. Normal echogenicity with no hydronephrosis or mass. SPLEEN: Normal. PANCREAS: The visualized portions are normal. AORTA: Normal in caliber. IVC: Normal where visualized. No ascites. IMPRESSION: 1. Mildly coarsened hepatic echotexture suggests underlying fibrosis. No overt cirrhosis. 2. Simple and mildly complex bilobar hepatic cysts. No suspicious hepatic lesions. 3. Small echogenic lesion in the right mid kidney measuring 7 mm. 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 Procedure Note Herminio Braun MD - 07/14/2020 EXAM: US ABD COMPLETE LOCATION: [facility] DATE/TIME: 07/14/2020 12:21 PM INDICATION: Hcc screening, hbv COMPARISON: 06/23/2014 TECHNIQUE: Complete abdominal ultrasound. FINDINGS: GALLBLADDER: Normal. No gallstones, wall thickening, or pericholecysticfluid. Negative sonographic Soria's sign. BILE DUCTS: No biliary dilatation. The common duct measures 3 mm. LIVER: Coarsened echotexture, suggesting underlying fibrosis. Smoothcontour. There are several simple and minimally complicated hepatic cysts.The two largest demonstrate mild complexity with thin avascular septationsand measure 2.2 x 2.3 x 2.2 cm in the left lobe and 2.9 x 2.9 x 2.3 cm inthe right lobe. The cysts have all mildly increased in size and comparedto prior exam. The portal vein is patent with flow in the normaldirection. RIGHT KIDNEY: Normal size. There is a homogenously echogenic lesion in themid right kidney measuring 7 x 7 x 7 mm. No hydronephrosis. LEFT KIDNEY: Normal size. Normal echogenicity with no hydronephrosis ormass. SPLEEN: Normal. PANCREAS: The visualized portions are normal. AORTA: Normal in caliber. IVC: Normal where visualized. No ascites. IMPRESSION: 1. Mildly coarsened hepatic echotexture suggests underlying fibrosis. Noovert cirrhosis. 2. Simple and mildly complex bilobar hepatic cysts. No suspicious hepaticlesions. 3. 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 Rosa Royal APRN, SOFTWARE DESIGN MANAGER [facility] US Lucille l Result * (ABNORMAL) Hepatitis B DNA Quant by TMA (06/22/2020 1:48 PM LEATHER COVERER) [facility] HBV Quantitative Interpretation Detected (A) Not Detected 06/23/2020 10:12 AM [facility]ATHER [facility]OVER[facility] HBV Quantitative [IU]/mL 177(H) <10 IU/mL 06/23/2020 10:12 AM [facility] HBV Quantitative 2.25(H) <1.0 log IU/mL 06/23/2020 10:12 AM [facility] Blood Venipuncture / Unknown 06/22/2020 1:48 PM LEATHER COVERER 06/22/2020 1:50 PM LEATHER COVERER [facility] - 06/23/2020 10:12 AM LEATHER COVERER Testing performed by Forensic Sergeant Mediated Amplification Rosa Royal APRN, SOFTWARE DESIGN MANAGER LAB_1 Lucille l Result [facility] [address] [address], [facility] [phone] * Liver Panel(Hepatic Function Panel) (06/22/2020 1:48 PM LEATHER COVERER) [facility] Alkaline Phosphatase 94 40 - 150 U/L 06/22/2020 7:33 PM LEATHER COVERER [facility] Bilirubin, Total 0.3 0.2 - 1.2 mg/dL 06/22/2020 7:33 PM LEATHER COVERER [facility] Bilirubin, Direct 0.2 0.0 - 0.5 mg/dL 06/22/2020 7:33 PM [facility] AST (SGOT) 19 10 - 40 U/L 06/22/2020 7:33 PM [facility] ALT (SGPT) 16 0 - 55 U/L 06/22/2020 7:33 PM [facility] Protein, Total 7.8 6.4 - 8.3 g/dL 06/22/2020 7:33 PM [facility] Albumin 3.9 3.5 - 5.0 g/dL 06/22/2020 7:33 PM [facility] Blood Venipuncture / Unknown 06/22/2020 1:48 PM LEATHER COVERER 06/22/2020 1:50 PM LEATHER COVERER Rosa Royal SALES REPRESENTATIVE ADDING MACHINES, SOFTWARE DESIGN MANAGER LAB_1 Lucille l Result Performing Organization Address [facility] Co de Phone Number [facility] [address] [place] [address], [facility] [phone] * HIV 1/2 AG/AB 4TH GEN (06/19/2019 2:20 PM LEATHER COVERER) HIV 1/2 Antigen/Anti body (4th generation) Negative (Non Reactive) Negative (Non Reactive) 06/19/2019 7:34 PM LEATHER COVERER [facility] Comment:HIV-1 p24 Antigen an d HIV-1/HIV-2 Antibody not detected Blood Venipuncture / Unknown 06/19/2019 2:20 PM LEATHER COVERER 06/19/2019 2:20 PM LEATHER COVERER Sejal Suarez SALES REPRESENTATIVE ADDING MACHINES, CNM LAB_1 F inal Result Performing Organization Address [facility] Co de Phone Number [facility] [address] [place] [address], [facility] [phone] * Hepatitis C Antibody, with Reflex (03/06/2018 2:45 PM CDT) Anti-HCV Negative (Non Reactive) [facility] Comment: Antibodies to HCV not detected. Does not exclude the possibility of exposure to HCV. 03/06/2018 2:45 PM CDT 03/06/2018 2:46 PM CDT Narrative [facility] - 03/06/2018 7:36 PM CDT Performed at [facility], [address] [place] [id number] Miguelina Christiansen SALES REPRESENTATIVE ADDING MACHINES, SOFTWARE DESIGN MANAGER LAB_1 Lucille l Result Performing Organization Address City/[facility]/ZIP Co de Phone Number [facility] [phone] * Pap Test, Routine (01/23/2017 3:09 PM CDT) Cytology, Pap (NOTE) Operator Specialist Communications Cytology Report Patient Name: JENY SAUNDERS Taken: 01/23/2017 Received: 01/23/2017 Reported: 01/31/2017 Physician(s): NAIMA DALY Source of Specimen Pap Test, Routine Cervical/Endocervi maximo: Specimen Adequacy Satisfactory for evaluation. Endocervical component absent. Final Cytologic Interpretation/Res ult NEGATIVE FOR INTRAEPITHELIAL LESION OR MALIGNANCY (NILM) *Electronically Signed Out By TERRY Naranjo (ASCP)* TERRY Naranjo (ASCP) Pap Smear History Date of Last Menstrual Period: Microscopic Description Microscopic examination is performed. [facility] Department of Pathology [address] [place] [id number] [facility] 01/23/2017 3:09 PM CDT 01/23/2017 7:58 PM CDT us Naima Daly MD LAB_1 Final Result Performing Organization Address City/[facility]/ZIP Co de Phone Number [facility] [phone] from Last 3 Months or Most Recently Relevant to Health Maintenance Insurance F[employer] INSURED [facility] [employer] Advance Directives * Full Code (Latest Code Status on File) Date Activated Date Inactivated Comments 04/19/2010 6:31 PM 04/22/2010 5:46 PM * Full Code Date Activated Date Inactivated Comments 04/19/2010 4:31 AM 04/19/2010 6:31 PM * Full Code Date Activated Date Inactivated Comments 04/18/2010 8:57 PM 04/19/2010 12:13 AM Care Teams Business Support Associate Relationship Specialty Start Date End Date Miguelina Christiansen APRN, SOFTWARE DESIGN MANAGER [address] [place] [address] PCP - General Nurse Practitioner 04/24/18
--- OUTSIDE RECORDS SUMMARY | 2024-12-31 17:59 | XMS_ITS | Encounter Summary ---
Author Organization [facility] Address [address] [place] [address] Care Team Providers Care Credit And Collections Representative Name Role Phone Miguelina Christiansen APRN, CNP Primary Care Provid er Encounter Details Date Type Department Care Team (Late st Contact Info) Description 01/27/2013 Correspondence External to PLAN OF CARE Social History Tobacco Use Types Packs/Day Years [...] as of this encounter Progress Notes * [facility] - 01/27/2013 12:00 AM CDT documented in this encounter Plan of Treatment Not on file documented as of this encounter Visit Diagnoses Not on filedocumented in this encounter Care Teams Credit And Collections Representative Relationship Specialty Start Date End Date Miguelina Christiansen APRN, CNP [address] [place] [address] PCP - General Nurse Practitioner 04/24/18 documented as of this encounter
--- OUTSIDE RECORDS SUMMARY | 2024-12-31 17:59 | XMS_ITS | Encounter Summary ---
Author Organization [facility] Address [address] [place] [address]. [place] [address] Care Team Providers Care Central Sterile Supply Technician Name Role Phone Jose Luis Manzano PA-C Primary Care Provider [phone] Annia Childers MD Unavailable [phone] Rose Wagoner PA-C Unavailable Nghia Wick MD Unavailable Julieth Rae [facility] Unavailable [phone] Reason for Visit * Reason Onset Date Comments Symptoms 12/31/2024 IUD 12/31/2024 Encounter Details Date Type Department Care Team (Late st Contact Info) Description 12/31/[address] [facility] [place] [address] [place] [address] Angelia Dudley MD [address] [place], [place] [address] Symptoms; IUD Social History Tobacco Use Types Packs/Day Years [...] encounter Miscellaneous Notes * Telephone Encounter - Promise Kim RN - 12/31/2024 12:49 PM CDT [employer] notified RN that pt reschedule US. Call to pt and explained that pt can not have ultrasound at clinic today. There is not a provider visit available for follow up today. Reviewed at length that she is at high risk for complications due to with IUD in place and having pelvic pain. Advised that she needs to go to emergency room now for evaluation. This can not wait. She should beevaluated as soon as possible. Pt asked if she could make appt for next week and the RN again strongly advised that she needs to be seen now in emergency room. Discussed possibility of complications with , where the IUD is positioned, uterine perforation and that it could have lasting effects on her health. Pt states she will go to emergency room today for evaluation. Promise Haque RN END USER SUPPORT SPECIALIST [place] * Telephone Encounter - Promise Kim RN - 12/31/2024 11:45 AM CDT Call to pt. There is no availability with provider today after ultrasound appt at 1300. Advised pt that due to pain it is important that she be seen now. Advised pt that she needs to go to emergency room now to be evaluated. Will cancel her US with clinic. Explained that this will be done in emergency room with immediate provider follow up. Advised that we need to see where the is located and see the position of the IUD. Pt states understanding and that she will go to emergency room now. Promise Haque RN END USER SUPPORT SPECIALIST [place] * Telephone Encounter - Angelia Dudley MD - 12/31/2024 11:34 AM CDT She needs a stat US and immediate clinic follow up. If this is not available outpt today, or she istoo uncomfortable, then she should go to the ER now. Angelia Dudley MD * Telephone Encounter - Promise Kim RN - 12/31/2024 11:13 AM CDT Pt has IUD in place LMP 11/13/24 Had positive test today. Having lower pelvic pain. Comes and goes. Pain is like pressure. Pt says may be slightly tender to the touch. Denies any vaginal bleeding. Scheduled for US today at [address] [facility]. Will need provider follow up. Pt is not established with this clinic. Dr Dudley would you like to follow this? Or do you advise we cancel US and she is seen through ED? Promise Haque RN END USER SUPPORT SPECIALIST [place] * Addendum Note - Promise Kim RN - 12/31/2024 11:12 AM CDTAddended by: PROMISE KIM on: 12/31/2024 01:14 PM Modules accepted: Orders documented in this encounter Plan of Treatment Upcoming Encounters Date Type Department Care Team (Late st Contact Info) Description 02/04/2025 11:15 AM CDT Office Visit [facility] [place] [address] [facility] [address] [place] [phone] Julieth Rae, KATHY [address] [address] [place] [address] 04/01/2025 9:30 AM CDT Office Visit [facility] [address] [place] [phone] Jose Luis Manzano PA-C [address] [place] [address] Nghia Wick MD [address] [place] [address] documented as of this encounter Visit Diagnoses Diagnosis Positive test- Primary examination or test, positive result IUD (intrauterine device) in place Presence of intrauterine contraceptive device documented in this encounter Care Teams Central Sterile Supply Technician Relationship Specialty Start Date End Date Jose Luis Manzano PA-C [address] [place] [address] PCP - General Family Medicine 05/25/22 Annia Childers MD [address] [facility] [address] [place] [address] Assigned PCP 11/01/24 Rose Wagoner PA-C [address] [facility] [address] [facility] [address] [place] [address] Physician Order Management Specialist fabric cutter 11/17/24 Nghia Wick MD [address] [facility] [address] [facility] [address] [place] [address] Allergy & Immunology 12/11/24 Julieth Rae CNM [address] [place] [address] Consumer Loan Underwriter fabric cutter 12/21/24 documented as of this encounter
--- OUTSIDE RECORDS SUMMARY | 2024-12-31 17:59 | XMS_ITS | Encounter Summary ---
Author Organization [facility] Address [address] [place] [address] Care Team Providers Care Truck Mechanic Apprentice Name Role Phone Kiran Nicholas [facility] Unavailable [phone] Jose Luis Manzano PA-C Primary Care Provider Dereje David MD Unavailable [phone] Nicholas Gordillo MD Unavailable Nupur Melo APRN [facility] Unavailable [phone] Annia Childers MD Unavailable Rose WagonerC Unavailable Nghia Wick MD Unavailable Julieth Rae [facility] Unavailable [phone] Encounter Details Date Type Department Care Team (Late st Contact Info) Description 02/14/2023 MyC Medical Advice [facility] [address] [place] [phone] Elida Tompkins, DARRIN Social History Tobacco Use [...] Description 02/04/2025 11:15 AM CDT Office Visit [facility] [address] [place] [address] Julieth Rae, CNM [address] [place] [address] 04/01/2025 9:30 AM CDT Office Visit [facility] [place] [address] [facility] [address] [place] [phone] Jose Luis Manzano PA-C [address] [place] [address] Nghia Wick MD [address] [facility] [address] [place], [place] [id number] documented as of this encounter Visit Diagnoses Not on filedocumented in this encounter Care Teams Truck Mechanic Apprentice Relationship Specialty Start Date End Date Jose Luis Manzano PA-C [address] [place] [address] PCP - General Family Medicine 05/25/22 Kiran Nicholas NP [address] [facility] [place] [address] Assigned PCP 11/19/21 06/21/23 [place] [address] [place] [address] Assigned Rheumatology Provider 07/14/22 12/02/23 Nicholas Gordillo MD [id number] [place] [address] Assigned PCP 06/22/23 08/02/24 Nupur Melo APRN MULTIPLE RESAW OPERATOR [address] [place] [address] Assigned PCP 08/03/24 10/31/24 Annia Childers MD [address] [place] [address] Assigned PCP 11/01/24 Rose Wagoner, RIMAC [address] [facility] 100 [place] [address] Physician Railroad Crane Operator drone operator 11/17/24 Nghia Wick MD [address] [facility] 200 [place] [address] Allergy & Immunology 12/11/24 Julieth Rae CNM [address] [facility] 700 [place] [address] Caddy drone operator 12/21/24 documented as of this encounter
--- OUTSIDE RECORDS SUMMARY | 2024-12-31 17:59 | XMS_ITS | Encounter Summary ---
Author Organization [facility] Address [address] [place] [address] Care Team Providers Care Galley Hand Name Role Phone Kiran Nicholas LEAD PRESSER Unavailable [phone] Jose Luis Manzano PA-C Primary Care Provider [phone] Dereje David MD Unavailable Nicholas Gordillo MD Unavailable [phone] Nupur Melo APRN [facility] Unavailable [phone] Annia Childers MD Unavailable Rose Wagoner PA-C Unavailable [phone] Nghia Wick MD Unavailable Isaiah Raeissa Julia [facility] Unavailable Encounter Details Date Type Department Care Team (Late st Contact Info) Description 12/21/2022 MyC Medical Advice [facility] [address] [address] Jose Luis Manzano PA-C [address] [address] Social History Tobacco Use Types [...] AM CDT Office Visit [facility] [address] [place] [address] Julieth Rae, CNM [address] [place] [address] 04/01/2025 9:30 AM CDT Office Visit [facility] [address] [facility] [address] [place] [phone] Jose Luis Manzano PA-C [address] [address] [place] [address] Nghia Wick MD [address] [facility] [address] [place] [address] documented as of this encounter Visit Diagnoses Not on filedocumented in this encounter Care Teams Galley Hand Relationship Specialty Start Date End Date Jose Luis Manzano PA-C [address] [place] [address] PCP - General Family Medicine 05/25/22 Kiran Nicholas NP [address] [facility] [place] [address] Assigned PCP 11/19/21 06/21/23 [place] [address] [place] [address] Assigned Rheumatology Provider 07/14/22 12/02/23 Nicholas Gordillo MD [id number] [place] [address] Assigned PCP 06/22/23 08/02/24 Nupur Melo APRN MANAGER DOCUMENT [address] [place] [address] Assigned PCP 08/03/24 10/31/24 Annia Childers MD [address] [place] [address] Assigned PCP 11/01/24 Rose Wagoner, RIMAC [address] [facility] [address] [place] [address] Physician Hospitality Job Titles color maker dyer 11/17/24 Nghia Wick MD [address] [facility] [address] [place] [address] Allergy & Immunology 12/11/24 Julieth Rae CNM [address] [place] [address] Distribution Collection Operator color maker dyer 12/21/24 documented as of this encounter
--- OUTSIDE RECORDS SUMMARY | 2024-12-31 17:59 | XMS_ITS | Encounter Summary ---
Author Organization [facility] Address [address] [place] [address] Care Team Providers Care Line Puller Name Role Phone Miguelina Christiansen APRN, CNP Primary Care Provid er Encounter Details Date Type Department Care Team (Late st Contact Info) Description 12/04/2011 Scanned History External to Transferred Record, Provider TRANSFERRED RECORDS Social History Tobacco Use Types Packs/Day Years [...] Progress Notes * Transferred Record, Provider - 12/04/2011 12:00 AM CDT documented in this encounter Plan of Treatment Not on file documented as of this encounter Visit Diagnoses Not on filedocumented in this encounter Care Teams Line Puller Relationship Specialty Start Date End Date Miguelina Christiansen APRN, CNP [address] [place] [address] PCP - General Nurse Practitioner 04/24/18 documented as of this encounter
--- OUTSIDE RECORDS SUMMARY | 2024-12-31 17:59 | XMS_ITS | Encounter Summary ---
Author Organization [employer] Address [address] [place] [address] Care Team Providers Care Inventory Control Planner Name Role Phone Miguelina Christiansen APRN, CNP Primary Care Provid er Encounter Details Date Type Department Care Team (Late st Contact Info) Description 07/02/2013 Correspondence External to [facility] External, [place] [address] PROOF OF FORM Social History Tobacco Use [...] encounter Progress Notes * External, Provider - 07/02/2013 12:00 AM CST MBLY OPERATOR documented in this encounter Plan of Treatment Not on file documented as of this encounter Visit Diagnoses Not on filedocumented in this encounter Care Teams Inventory Control Planner Relationship Specialty Start Date End Date Miguelina Christiansen APRN, CNP [address] [place] [address] PCP - General Nurse Practitioner 04/24/18 documented as of this encounter
--- OUTSIDE RECORDS SUMMARY | 2024-12-31 17:59 | XMS_ITS | Encounter Summary ---
Author Organization [employer] Address [address] [place] [address] Care Team Providers Care Tooling Supervisor Name Role Phone Miguelina Christiansen APRN, CNP Primary Care Provid er Encounter Details Date Type Department Care Team (Late st Contact Info) Description 10/19/2013 Outside Hospital External to [facility] DISCHARGE Social History Tobacco Use Types Packs/Day Years [...] as of this encounter Progress Notes * NIURKA ROSE, PROVIDER - 10/19/2013 12:00 AM CDT documented in this encounter Plan of Treatment Not on file documented as of this encounter Visit Diagnoses Not on filedocumented in this encounter Care Teams Tooling Supervisor Relationship Specialty Start Date End Date Miguelina Christiansen APRN, CNP [address] [place] [address] PCP - General Nurse Practitioner 04/24/18 documented as of this encounter
--- OUTSIDE RECORDS SUMMARY | 2024-12-31 17:59 | XMS_ITS | Encounter Summary ---
Author Organization [facility] Address [address] [place] [address] Care Team Providers Care Program Research Specialist Name Role Phone Miguelina Christiansen APRN, CNP [...] on filedocumented in this encounter Care Teams Program Research Specialist Relationship Specialty Start Date End Date Miguelina Christiansen APRN, CNP [address] [place] [address] PCP - General Nurse Practitioner 04/24/18 documented as of this encounter
[2024-12-31 18:45] LABS: Appearance Urine Clear (Clear); Bilirubin Urine Negative (Negative); Blood Urine Negative (Negative); Color Urine Yellow (Yellow); Glucose Urine Negative (Negative); Ketones Urine Negative (Negative); Leukocyte Esterase Urine Negative (Negative); Nitrite Urine Negative (Negative); Protein Urine Negative (Negative); Urobilinogen Urine 0.2 (0.2-1.0); pH Urine 6.5 (5.0-8.5)
[2024-12-31 18:59] VITALS: BP 121/95; PULSE 64; RESP 16; O2SAT 98
[2024-12-31 19:13] LABS: RBC Urine 0-2 (0-2); Squamous Epithelial Cell Urine Few (None-Few); WBC Urine 0-2 (0-5)
== END 2024-12-31 19:22 | disposition home or self-care (01) ==
PROVIDERS: Emergency Provider Emergency Medicine Emergency Medical Services
DX: R10.2 Pelvic and perineal pain (principal); Z97.5 Presence of (intrauterine) contraceptive device
CPT/HCPCS: 76830; 81001; 81025; 93976; 99284